=== PATIENT | female | born 1995 ===

== ENCOUNTER → 2017-04-08 | Outpatient (CLI) | payer OTHER ==
[2017-04-08 13:46] LABS: CH 32.9; CHCM 35.2; HCT 38.2 % (34.0-46.0); HDW 2.91; HGB 13.2 gm/dL (11.4-16.0); MCH 32.5 pg (25.0-35.0); MCHC 34.6 g/dL (31.0-37.0); MCV 94.1 fL (80.0-100.0); Mean Platelet Volume 6.9; RBC 4.06 m/uL (3.80-5.40); RDW 13.2 % (11.5-15.5); WBC 7.8 k/uL (4.0-11.0)
[2017-04-08 19:51] LABS: Glucose 67 mg/dL (74-99); Non-African American GFR(MDRD) >60 (>60 ml/min/1.73 sqM)
[2017-04-08 20:26] LABS: Hepatitis B Surface Ag Index 0.06
[2017-04-09 03:24] LABS: Toxoplasma Antibody (IgG) <3.0 IU/mL (<7.2)
== END | disposition home or self-care (01) ==
LOC: LABWHC1 13:08
PROVIDERS: ATTEND Obstetrics & Gynecology
DX: Z34.82 Encounter for supervision of other normal pregnancy, second trimester (principal); Z3A.00 Weeks of gestation of pregnancy not specified
CPT/HCPCS: 36415; 82565; 82947; 85027; 86762; 86777; 86778; 86780; 86850; 86900; 86901; 87340

== ENCOUNTER → 2017-06-08 | Outpatient (CLI) | payer OTHER ==
[2017-06-08 13:34] LABS: CH 33.1; CHCM 35.1; HCT 39.4 % (34.0-46.0); HDW 3.02; HGB 13.6 gm/dL (11.4-16.0); MCH 32.8 pg (25.0-35.0); MCHC 34.5 g/dL (31.0-37.0); MCV 95.1 fL (80.0-100.0); Mean Platelet Volume 7.6; RBC 4.15 m/uL (3.80-5.40); WBC 10.8 k/uL (4.0-11.0)
== END | disposition home or self-care (01) ==
LOC: LABWHC1 12:13
PROVIDERS: ATTEND Obstetrics & Gynecology
DX: Z34.82 Encounter for supervision of other normal pregnancy, second trimester (principal); Z3A.00 Weeks of gestation of pregnancy not specified
CPT/HCPCS: 36415; 82950; 85027

== ENCOUNTER 2017-07-23 12:25 | Outpatient (CLI) | payer OTHER ==
[2017-07-23 13:09] VITALS: BP 119/67; PULSE 86; RESP 16; TEMP 98.1
--- NOTE | 2017-07-24 09:12 | P.MSEPDOC ---
Presenting Problems - Arrival Data Date of Arrival on Unit: 07/23/17 Time of Arrival on Unit: 12:30 Mode of Transport: Ambulatory - Complaint OB-Reason for Admission/Chief Complaint: NST Medical History - Information : 2 Para: 1 Term: 1 : 0 Abortions: Spontaneous or Elective: 0 Number of Living Children: 1 - Gestational Age Expected Date of Delivery: 09/03/17 Gestational Age by ELAINA (wks/days): 34 Weeks and 1 Days Review of Systems - Review of Systems Constitutional: No problems Breast: No problems ENT: No problems Cardiovascular: No problems Respiratory: No problems Gastrointestinal: No problems Genitourinary: No problems Musculoskeletal: No problems Neurological: No problems Skin: No problems Vital Signs - Temperature Temperature: 98.1 F Temperature Source: Oral - Pulse Right Brachial Pulse Rate: 86 Pulse Assessment Method: Automatic Cuff - Respirations Respiratory Rate: 16 Oxygen Delivery Method: Room Air - Blood Pressure Right Arm Blood Pressure: 119/67 Blood Pressure Mean: 84 Blood Pressure Source: Automatic Cuff Medical Screen Scoring (Pre) - Cervical Exam Dilation: Exam Deferred - Uterine Contractions Frequency: N/A Duration: N/A Intensity: N/A - Maternal Vital Signs Maternal Temperature: N/A Maternal Blood Pressure: N/A Signs of Preeclampsia: N/A Maternal Respirations: N/A - Maternal Trauma Maternal Trauma: N/A - Assessment Baseline FHR: 145 Heart Rate - NICHD Category: Category I (Normal) = 0 NST: Reactive Position: N/A Station: N/A - Total Score Total Score (Pre): 0 - Level of Risk Level of Risk: Low (0-5) Physician Notification (Pre) - Physician Notified Physician Notified Date: 07/23/17 Physician Notified Time: 12:45 Physician/Practitioner Notifed:: Dr. Leigh Spoke With: Dr. Leigh New Order Received: Yes Disposition - Disposition OB Disposition: Discharge to home Discharge Date: 07/23/17 Discharge Time: 12:50 I agree with the RN Medical Screening Exam: Yes Risk & Benefit of care provided described in d/c instruction: Yes Diagnosis: RELATED CONDITIONS, UNSPECIFIED, THIRD TRIMESTER
== END 2017-07-23 13:10 | disposition home or self-care (01) ==
LOC: FBPOP 12:25
PROVIDERS: ATTEND Obstetrics & Gynecology
DX: O26.93 Pregnancy related conditions, unspecified, third trimester (principal); Z3A.34 34 weeks gestation of pregnancy
CPT/HCPCS: 59025; G0463; 99213

== ENCOUNTER 2017-08-03 11:10 | Outpatient (CLI) | payer OTHER ==
[2017-08-03 12:54] VITALS: BP 116/64; PULSE 96; RESP 16; TEMP 97.9
--- NOTE | 2017-09-23 08:12 | P.MSEPDOC ---
Presenting Problems - Arrival Data Date of Arrival on Unit: 08/03/17 Time of Arrival on Unit: 11:20 Mode of Transport: Wheelchair - Complaint OB-Reason for Admission/Chief Complaint: Vaginal Bleeding Comment: Pt states she has spotting on underwear Medical History - Information : 2 Para: 1 Term: 1 : 0 Abortions: Spontaneous or Elective: 0 Number of Living Children: 1 - Gestational Age Gestational Age by ELAINA (wks/days): 35 Weeks and 4 Days - History Complications: Prior Review of Systems - Review of Systems Constitutional: No problems Breast: No problems ENT: No problems Cardiovascular: No problems Respiratory: No problems Gastrointestinal: No problems Genitourinary: Increased frequency Musculoskeletal: No problems Neurological: No problems Skin: No problems Comment: Pt states she has had itching in vagina Vital Signs - Temperature Temperature: 97.9 F Temperature Source: Tympanic - Pulse Pulse Oximetery Pulse Rate: 96 Pulse Assessment Method: Pulse Oximetry - Respirations Respiratory Rate: 16 Oxygen Delivery Method: Room Air O2 Sat by Pulse Oximetry: 100 - Blood Pressure Right Arm Blood Pressure: 116/64 Blood Pressure Mean: 81 Blood Pressure Source: Automatic Cuff Medical Screen Scoring (Pre) - Cervical Exam Dilation: Exam Deferred Membranes: Intact - Uterine Contractions Frequency: N/A Duration: N/A Intensity: N/A - Maternal Vital Signs Maternal Temperature: N/A Maternal Blood Pressure: N/A Signs of Preeclampsia: N/A Maternal Respirations: N/A - Maternal Trauma Maternal Trauma: N/A - Assessment Baseline FHR: 125 Heart Rate - NICHD Category: Category I (Normal) = 0 NST: Reactive Position: N/A Station: N/A - Total Score Total Score (Pre): 0 - Level of Risk Level of Risk: Low (0-5) Physician Notification (Pre) - Physician Notified Physician Notified Date: 08/03/17 Physician Notified Time: 12:08 Physician/Practitioner Notifed:: James Spoke With: James New Order Received: Yes - Notification Comment Comment: Notified of pts arrival and c/o spotting today. Also notified of no LOF, no ctx felt, and +FM. Orders to perform sterile speculum to assess for increased bleeding and perform cervical exam. Medical Screen Scoring (Post) - Cervical Exam Dilation: 0 cm = 0 Membranes: Intact - Uterine Contractions Frequency: N/A Duration: N/A Intensity: N/A - Maternal Vital Signs Maternal Temperature: N/A Maternal Blood Pressure: N/A Signs of Preeclampsia: N/A Maternal Respirations: N/A - Maternal Trauma Maternal Trauma: N/A - Assessment Heart Rate: 125 Heart Rate - NICHD Category: Category I (Normal) = 0 NST: Reactive Position: N/A Station: N/A - Total Score Total Score (Post): 0 - Post Treatment Level of Risk Post Treatment Level of Risk: Low (0-5) Physician Notification (Post) - Physician Notified Physician Notified Date: 08/03/17 Physician Notified Time: 12:25 Physician/Practitioner Notified:: James Spoke With: James New Order Received: Yes - Notification Comment Comment: Orders for pt to get monostat 7. Orders for discharge of pt at this time. Disposition - Disposition OB Disposition: Discharge to home Discharge Date: 08/03/17 Discharge Time: 12:35 I agree with the RN Medical Screening Exam: Yes Risk & Benefit of care provided described in d/c instruction: Yes Diagnosis: ACUTE VAGINITIS
== END 2017-08-03 12:35 | disposition home or self-care (01) ==
LOC: FBPOP 11:10
PROVIDERS: ATTEND Obstetrics & Gynecology
DX: O23.593 Infection of other part of genital tract in pregnancy, third trimester (principal); Z3A.35 35 weeks gestation of pregnancy
CPT/HCPCS: 59025; G0463; 99213

== ENCOUNTER 2017-08-21 12:24 | Observation (INO) | payer OTHER ==
[2017-08-21 12:47] VITALS: BMI 24.8
--- NOTE | 2017-08-21 13:12 | P.HPOB ---
History of Present Illness H&P Date: 08/21/17 Chief Complaint: Uterine at 38 weeks with symptoms of pneumonia Patient is a 22-year-old at 30 weeks 2 days' gestation who is 5 days from having a repeat section. She was started on anti-medics last week due to Crestor infection but has not improved in the last 7 days left lower lobe sounds have rhonchi in them and there is significant left inventory an extra wheeze and I am therefore admitting her for observation to adjust antibiotics as well as breathing treatments and consult pulmonology so that we can hopefully have her in a better condition for when she is scheduled for her section. Her Precis course has not really been significant for anything other than the rest or infection that she is developed the last 7-10 days. Her vital signs are stable and she is afebrile. Her heart is regular right lung sounds were clear left as above. Abdomen is gravid heart tones are in the 130s to 140s and have been reactive. He is without pain. Assessment intrauterine at 38 weeks gestation with left lower lobe pneumonia versus asthmatic bronchitis. Pulmonary is going to evaluate her in the near future and will await their recommendations Past Medical History Past Medical History: No Reported History History of Any Multi-Drug Resistant Organisms: None Reported Past Surgical History: Section Additional Past Surgical History / Comment(s): 2013 Past Anesthesia/Blood Transfusion Reactions: No Reported Reaction Past Psychological History: No Psychological Hx Reported Smoking Status: Current every day smoker Past Alcohol Use History: None Reported Past Drug Use History: None Reported - Past Family History Mother Family Medical History: No Reported History Medications and Allergies Home Medications Medication Instructions Recorded Confirmed Type Amoxicillin [Amoxicillin] 250 mg PO TID 08/21/17 08/21/17 History Allergies Allergy/AdvReac Type Severity Reaction Status Date / Time Penicillins Allergy Rash/Hives Verified 08/21/17 12:41 Exam Osteopathic Statement: *. No significant issues noted on an osteopathic structural exam other than those noted in the History and Physical/Consult. - Vital Signs Vital signs: Vital Signs Temp Pulse Resp BP Pulse Ox 08/21/17 12:41 97 F L 70 16 114/74 100 Intake and Output 08/20/17 08/21/17 08/21/17 22:59 06:59 14:59 Other: Weight 61.689 kg Patient Weight 08/22/17 06:59 Weight 61.689 kg - OBG Physical Exam Abdomen: bowel sounds normal, no diffuse tenderness, no bruit present, no guarding noted, no hepatomegaly, no splenomegaly, no mass
--- NOTE | 2017-08-21 13:19 | XR ---
EXAMINATION TYPE: XR chest 2V DATE OF EXAM: 08/21/2017 COMPARISON: NONE HISTORY: Shortness of breath TECHNIQUE: Frontal and lateral views of the chest are obtained. FINDINGS: There is no focal air space opacity, pleural effusion, or pneumothorax seen. The cardiac silhouette size is within normal limits. The osseous structures are intact. IMPRESSION: No acute cardiopulmonary process.
[2017-08-21] MEDS ORDERED: ALBUTEROL NEBULIZED 2.5 MG/3 ML INHALATION PRN (14:01)
--- NOTE | 2017-08-21 14:01 | P.CNPUL ---
History of Present Illness Consult date: 08/21/17 Reason for consult: cough Chief complaint: Productive cough History of present illness: This is a 22-year-old white female, at 38 weeks and 4 days gestation, who we are asked to see in consult for persistent productive cough lasting about a week. She denies having fevers, chills, wheezing or significant shortness of breath. She had been treated with oral amoxicillin for 7 days with no significant improvement in her coughing or chest congestion. She is scheduled for a in 5 days, optimization of her respiratory condition is desirable prior to it. She denies history of asthma or any other chronic pulmonary conditions, but she is a current every day smoker. No significant past medical history other than obstetric history. Chest x-ray from 08/21/2017 was reviewed and showed no evidence of pneumonia, no consolidation, or any other acute cardiopulmonary process. On examination patient is awake alert, in no distress. Coarse lung sounds over left posterior lung base. But no wheezes, no rails. She is on room air with oxygen saturation at 100%. Afebrile, denies chest congestion. States she still has a productive cough with clear sputum. Review of Systems Constitutional: Denies chills, Denies fever Eyes: denies blurred vision, denies pain Ears, nose, mouth and throat: Denies headache, Denies sore throat Cardiovascular: Denies chest pain, Denies shortness of breath Respiratory: Reports cough with sputum (I will think), Reports wheezing Gastrointestinal: Denies abdominal pain, Denies diarrhea, Denies nausea, Denies vomiting Genitourinary: Denies dysuria, Denies hematuria Musculoskeletal: Denies myalgias Integumentary: Denies pruritus, Denies rash Neurological: Denies numbness, Denies weakness Psychiatric: Denies anxiety, Denies depression Endocrine: Denies fatigue, Denies weight change Past Medical History Past Medical History: No Reported History History of Any Multi-Drug Resistant Organisms: None Reported Past Surgical History: Section Additional Past Surgical History / Comment(s): 2013 Past Anesthesia/Blood Transfusion Reactions: No Reported Reaction Past Psychological History: No Psychological Hx Reported Smoking Status: Current every day smoker Past Alcohol Use History: None Reported Past Drug Use History: None Reported - Past Family History Mother Family Medical History: No Reported History Medications and Allergies Home Medications Medication Instructions Recorded Confirmed Type Amoxicillin [Amoxicillin] 250 mg PO TID 08/21/17 08/21/17 History Allergies Allergy/AdvReac Type Severity Reaction Status Date / Time Penicillins Allergy Rash/Hives Verified 08/21/17 12:41 Physical Exam Vitals: Vital Signs Temp Pulse Resp BP Pulse Ox 08/21/17 12:41 97 F L 70 16 114/74 100 Intake and Output 08/20/17 08/21/17 08/21/17 22:59 06:59 14:59 Other: Weight 61.689 kg Patient Weight 08/22/17 06:59 Weight 61.689 kg GENERAL EXAM: Alert, active, female in no apparent distress. HEAD: Normocephalic. EYES: Normal reaction of pupils, equal size. NOSE: Clear with pink turbinates. THROAT: No erythema or exudates. NECK: No masses, no JVD. CHEST: No chest wall deformity. LUNGS: Equal air entry with no crackles, wheeze, rhonchi or dullness. CVS: S1 and S2 normal with no audible mumurs, regular rhythm. ABDOMEN: No hepatosplenomegaly, normal bowel sounds, no guarding or rigidity. SPINE: No scoliosis or deformity SKIN: No rashes CENTRAL NERVOUS SYSTEM: No focal deficits, tone is normal in all 4 extremities. Results - Diagnostic Findings Chest x-ray: report reviewed Assessment and Plan Plan: Assessment: #1. Acute tracheobronchitis, outpatient treatment failure #2. Ongoing chronic nicotine dependence #3. Uterine at 38 weeks and 4 days gestation #4. History of section Plan: We will initiate IV azithromycin and IV ceftriaxone for antibiotic coverage for tracheobronchitis. No evidence of pneumonia. Will obtain sputum cultures. CBC with differential. Chest x-ray was reviewed. Upon discharge patient can be switched to 10 day course of Ceftin 500 mg by mouth twice a day and 5 day course of Zithromax. Albuterol nebulized treatments 2.5 mg 4 times a day and as needed. We'll continue to follow. I performed a history & physical examination of the patient and discussed their management with my nurse practitioner, Amanda Kumar. I reviewed the nurse practitioner's note and agree with the documented findings and plan of care.
[2017-08-21] MEDS: AZITHROMYCIN 500 MG in SODIUM CHLORIDE 0.9% 250 ML IVPB SCH (14:14)
[2017-08-21 14:38] LABS: Basophils % (A) 0 %; CH 32.4; CHCM 34.2; Eosinophils # (A) 0.2 k/uL (0-0.7); Eosinophils % (A) 2 %; HCT 38.7 % (34.0-46.0); HDW 3.28; Luc # (Auto) 0.24; Luc % (Auto) 3; Lymphocytes # (A) 2.3 k/uL (1.0-4.8); Lymphocytes % (A) 24 %; MCH 32.2 pg (25.0-35.0); MCHC 33.7 g/dL (31.0-37.0); MCV 95.3 fL (80.0-100.0); Mean Platelet Volume 7.6; Monocytes # (A) 0.5 k/uL (0-1.0); Monocytes % (A) 5 %; Neutrophils # (A) 6.6 k/uL (1.3-7.7); Neutrophils % (A) 67 %; RBC 4.06 m/uL (3.80-5.40); RDW 13.9 % (11.5-15.5); WBC 9.8 k/uL (3.8-10.6)
[2017-08-21] MEDS: ALBUTEROL NEBULIZED 2.5 MG/3 ML INHALATION SCH ×2 (16:27→19:22)
[2017-08-22] MEDS: AZITHROMYCIN 500 MG in SODIUM CHLORIDE 0.9% 250 ML IVPB SCH (06:32)
[2017-08-22] MEDS: ALBUTEROL NEBULIZED 2.5 MG/3 ML INHALATION SCH (08:42)
[2017-08-22 08:47] VITALS: BP 124/78; RESP 18; TEMP 97.6
[2017-08-22 08:52] VITALS: PULSE 79
--- NOTE | 2017-08-22 10:08 | P.DS ---
Providers Date of admission: 08/21/17 12:24 Expected date of discharge: 08/22/17 Attending physician: Derrick Leigh Consults: 08/21/17 12:50 Consult Physician Routine Consulting Provider: Lulu Aquino Consult Reason/Comments: Shortness of breath, cough Do you want consulting provider notified?: Yes Hospital Course: Patient is seen and evaluated. Overall she is doing well. Her vital signs continued be stable and she is afebrile. She is tolerated antibiotics well heart tones are noted this morning. She will follow up with me on Thursday for nonstress test. And she has a scheduled for Thursday. Prescriptions for Ceftin, erythromycin, and an albuterol MDI have been provided and instructions given on usage. On physical exam her heart is regular, abdomen is soft gravid uterus is noted, extremities are without pain. Right lung continues to be clear left long still some what I would describe this rhonchi and expiratory wheeze but does sound better than yesterday. We'll plan discharged home today and again she'll follow up with me on Thursday. Discharge instructions were also thoroughly reviewed and all questions are answered for her at this time. She is stable for discharge this time. Patient Condition at Discharge: Good Plan - Discharge Summary New Discharge Prescriptions: New Cefuroxime Axetil [Ceftin] 500 mg PO BID #10 tab No Action Amoxicillin [Amoxicillin] 250 mg PO TID Discharge Medication List Amoxicillin [Amoxicillin] 250 mg PO TID 08/21/17 [History] Cefuroxime Axetil [Ceftin] 500 mg PO BID #10 tab 08/22/17 [Rx] Follow up Appointment(s)/Referral(s): Derrick Leigh DO [Doctor of Osteopathic Medicine] - 08/24/17 Activity/Diet/Wound Care/Special Instructions: Return with any decrease in movement, contractions, or other problems especially with any change in her breathing. Discharge Disposition: HOME SELF-CARE
== END 2017-08-22 10:20 | disposition home or self-care (01) ==
LOC: 4FBP 12:24
PROVIDERS: ADMIT Obstetrics & Gynecology; ATTEND Obstetrics & Gynecology
DX: O99.513 Diseases of the respiratory system complicating pregnancy, third trimester (principal); J20.9 Acute bronchitis, unspecified; O99.333 Smoking (tobacco) complicating pregnancy, third trimester; F17.200 Nicotine dependence, unspecified, uncomplicated; Z3A.38 38 weeks gestation of pregnancy; Z88.0 Allergy status to penicillin
CPT/HCPCS: 71020; 85025; 87205; 94640

== ENCOUNTER 2017-08-26 06:44 | Inpatient (IN) | payer OTHER ==
[2017-08-26] MEDS ORDERED: CITRIC ACID-SODIUM CITRATE 15 ML CUP PO ONE (06:59)
[2017-08-26] MEDS ORDERED: LACTATED RINGERS 1,000 ML IV ONE (06:59)
[2017-08-26] MEDS ORDERED: LACTATED RINGERS 1,000 ML IV SCH ×2 (07:00→09:00)
[2017-08-26] MEDS ORDERED: CLINDAMYCIN 900 MG in DEXTROSE 5% IN WATER 50 ML IVPB STA ×2 (07:01)
[2017-08-26 07:13] LABS: Basophils # (A) 0.1 k/uL (0-0.2); Basophils % (A) 1 %; CH 32.3; CHCM 34.8; Eosinophils # (A) 0.3 k/uL (0-0.7); Eosinophils % (A) 3 %; HCT 38.7 % (34.0-46.0); HDW 3.31; HGB 13.1 gm/dL (11.4-16.0); Luc # (Auto) 0.28; Luc % (Auto) 3; Lymphocytes # (A) 2.8 k/uL (1.0-4.8); Lymphocytes % (A) 27 %; MCH 31.7 pg (25.0-35.0); MCHC 33.9 g/dL (31.0-37.0); MCV 93.5 fL (80.0-100.0); Mean Platelet Volume 7.6; Monocytes # (A) 0.6 k/uL (0-1.0); Monocytes % (A) 6 %; Neutrophils # (A) 6.2 k/uL (1.3-7.7); Neutrophils % (A) 61 %; RBC 4.15 m/uL (3.80-5.40); RDW 13.9 % (11.5-15.5); WBC 10.1 k/uL (3.8-10.6); WBC (Perox) 10.52
[2017-08-26 07:14] VITALS: BMI 24.8
[2017-08-26] MEDS ORDERED: NALBUPHINE 10 MG/ML AMPUL ONE (08:24)
[2017-08-26] MEDS ORDERED: ONDANSETRON 4 MG/2 ML VIAL ONE (08:24)
[2017-08-26] MEDS ORDERED: MORPHINE SULFATE (PF) 0.3 MG/0.3 ML SYR ONE (08:24)
[2017-08-26] MEDS ORDERED: KETOROLAC 30 MG/ML 1 ML VIAL ONE (08:24)
[2017-08-26] MEDS ORDERED: ePHEDrine SULFATE/0.9% NACL/PF 50 MG/5 ML SYRINGE IV ONE (08:24)
[2017-08-26] MEDS ORDERED: OXYTOCIN 10 UNIT/ML 1 ML VIAL ONE (08:24)
[2017-08-26] MEDS ORDERED: diphenhydrAMINE 50 MG CAP PO PRN (08:59)
[2017-08-26] MEDS ORDERED: NALOXONE 0.4 MG/ML 1 ML VIAL IV PRN ×2 (08:59→14:07)
[2017-08-26] MEDS ORDERED: diphenhydrAMINE 50 MG/ML 1 ML VIAL IVP PRN ×2 (08:59)
[2017-08-26] MEDS ORDERED: KETOROLAC 30 MG/ML 1 ML VIAL IVP PRN (08:59)
[2017-08-26] MEDS ORDERED: METOCLOPRAMIDE 5 MG/ML 2 ML VIAL IVP PRN (08:59)
[2017-08-26] MEDS ORDERED: ACETAMINOPHEN TAB 325 MG TAB PO PRN (08:59)
[2017-08-26] MEDS ORDERED: diphenhydrAMINE 25 MG CAP PO PRN (08:59)
[2017-08-26] MEDS ORDERED: Acetaminophen-Codeine 300-30mg TAB PO PRN (08:59)
[2017-08-26] MEDS ORDERED: ZOLPIDEM 5 MG TAB PO PRN (08:59)
[2017-08-26] MEDS ORDERED: SIMETHICONE 80 MG CHEWABLE PO PRN (08:59)
[2017-08-26] MEDS ORDERED: ONDANSETRON 4 MG/2 ML VIAL IVP PRN (08:59)
--- NOTE | 2017-08-26 09:02 | P.HPOB ---
History of Present Illness H&P Date: 08/26/17 Chief Complaint: Intrauterine at term: Previous section Patient is a 22-year-old at 39 weeks with previous section. Her course until last week had been unremarkable. However last week she was diagnosed with acute asthmatic bronchitis and has been on antibiotics and inhalers for last several days. She is feeling much improved and lungs are much clear now than they were a few days ago. Her vital signs are stable and afebrile. Heart regular, lungs clear again abdomen gravid uterus noted. heart tones in the 130s and reactive. Extremities are without pain. Pertinent labs O+ blood type Rh antibody was negative, rubella immune, hepatitis B surface antigen/RPR/GBS, all negative. Assessment intrauterine at term plan repeat low transverse section. Past Medical History Past Medical History: No Reported History History of Any Multi-Drug Resistant Organisms: None Reported Past Surgical History: Section Additional Past Surgical History / Comment(s): 2013 Past Anesthesia/Blood Transfusion Reactions: No Reported Reaction Past Psychological History: No Psychological Hx Reported Smoking Status: Current every day smoker Past Alcohol Use History: None Reported Past Drug Use History: None Reported - Past Family History Mother Family Medical History: No Reported History Medications and Allergies Home Medications Medication Instructions Recorded Confirmed Type Cefuroxime Axetil [Ceftin] 500 mg PO BID #10 tab 08/22/17 Rx Azithromycin [Zithromax] 250 mg PO DAILY 08/26/17 08/26/17 History Allergies Allergy/AdvReac Type Severity Reaction Status Date / Time Penicillins Allergy Rash/Hives Verified 08/26/17 06:56 Exam Osteopathic Statement: *. No significant issues noted on an osteopathic structural exam other than those noted in the History and Physical/Consult. - Vital Signs Vital signs: Vital Signs Temp Pulse Resp BP 08/26/17 06:56 97.5 F L 90 16 116/72 Intake and Output 08/25/17 08/26/17 08/26/17 22:59 06:59 14:59 Other: Weight 61.689 kg Results Result Diagrams: 08/26/17 07:00
[2017-08-26] MEDS ORDERED: DIPH,PERTUS(ACELL)TETVAC-LF 0.5 ML VIAL IM ONE (09:05)
--- NOTE | 2017-08-26 09:05 | P.OP ---
Date of Procedure: 08/26/17 Preoperative Diagnosis: Intrauterine at 39 weeks with prior section Postoperative Diagnosis: Same Procedure(s) Performed: Repeat low transverse section Anesthesia: spinal Surgeon: Derrick Leigh [employer] Installer #1: Jeovanny Hernandez Estimated Blood Loss (ml): 400 IV fluids (ml): 1,000 Urine output (ml): 500 Pathology: other (Placenta) Condition: stable Disposition: floor Operative Findings: Female 's of 8 and 9 at one and 5 minutes with a weight of 6 lbs. 5 oz. Description of Procedure: Patient was taken to the operating suite where a spinal anesthetic was found to be adequate. She was prepped and draped in the normal sterile fashion and placed in the dorsal supine position with leftward tilt. Initially a Pfannenstiel skin incision was made and this incision was then carried through to underlying layer of the fashion with second knife. Fascia was then nicked in the midline and this opening was extended laterally with Floyd scissors. Superior and inferior aspect of this incision were then grasped tented up and bluntly and sharply dissected off the rectus muscles. Rectus muscles were then divided in the midline and sharp dissection through the peritoneum was made. This opening was then extended superiorly and inferiorly with Metzenbaum scissors with good visualization of both bowel and bladder. Bladder blade was then placed and the bladder flap identified entered with Metzenbaum scissors and the opening extended across the face of the uterus with Metzenbaum scissors. Bladder was then bluntly dissected out of the operative field. Knife was then used to incise the uterus incision was fully developed with hemostat and then extended bluntly. Head was then atraumatically delivered mouth nares bulb suctioned. Nuchal cord 2 was easily reduced and then anterior posterior shoulders were delivered gentle downward upper traction. Once baby was fully delivered umbilical cord was clamped and cut in usual fashion an nursery personnel was present to assume care. Placenta was then delivered intact and Pitocin was added to the IV. Uterus was then closed in 2 layers with 0 Vicryl suture. Blood and debris was then suctioned from the posterior cul-de-sac and the uterus was reinserted into the abdomen. Peritoneal layer was then reapproximated with 0 Vicryl suture. Fascial layer closed with 0 Vicryl suture. She had basically no subcuticular tissues therefore skin was closed with 3-0 Vicryl on a Victorino needle. Sponge, lap, needle counts were all correct 2. Patient was then taken to the recovery room in stable and satisfactory condition.
[2017-08-26] MEDS: AZITHROMYCIN 250 MG TAB PO SCH (12:43)
[2017-08-26] MEDS: CEFUROXIME 250 MG TAB PO SCH ×2 (12:44→22:32)
[2017-08-26] MEDS ORDERED: MORPHINE SULFATE 4 MG/ML SYRINGE IVP PRN (14:07)
[2017-08-26] MEDS: SENNOSIDES-DOCUSATE SODIUM 1 EACH TAB PO SCH (20:34)
[2017-08-26] MEDS: NICOTINE 14MG/24HR PATCH TRANSDERM SCH (20:34)
[2017-08-27] MEDS: Acetaminophen-Codeine 300-30mg TAB PO PRN ×2 (05:57→19:46)
[2017-08-27 07:34] LABS: Basophils # (A) 0.1 k/uL (0-0.2); Basophils % (A) 0 %; CH 32.1; CHCM 34.1; Eosinophils # (A) 0.1 k/uL (0-0.7); Eosinophils % (A) 1 %; HCT 34.9 % (34.0-46.0); HDW 3.25; Luc # (Auto) 0.21; Luc % (Auto) 2; Lymphocytes # (A) 1.7 k/uL (1.0-4.8); Lymphocytes % (A) 14 %; MCH 32.6 pg (25.0-35.0); MCHC 34.4 g/dL (31.0-37.0); MCV 94.7 fL (80.0-100.0); Mean Platelet Volume 8.2; Monocytes # (A) 0.7 k/uL (0-1.0); Monocytes % (A) 6 %; Neutrophils # (A) 8.9 k/uL (1.3-7.7); Neutrophils % (A) 77 %; RBC 3.69 m/uL (3.80-5.40); WBC 11.6 k/uL (3.8-10.6); WBC (Perox) 12.43
[2017-08-27] MEDS: SENNOSIDES-DOCUSATE SODIUM 1 EACH TAB PO SCH ×2 (11:18→19:46)
[2017-08-27] MEDS: AZITHROMYCIN 250 MG TAB PO SCH (11:18)
[2017-08-27] MEDS: CEFUROXIME 250 MG TAB PO SCH ×2 (11:19→22:34)
[2017-08-27] MEDS: IBUPROFEN 600 MG TAB PO PRN ×2 (11:20→22:34)
--- NOTE | 2017-08-27 12:27 | P.PNOBGPC ---
Subjective - Subjective Principal diagnosis: post op day 1 Interval history: doing very well. no c/o or problems. all questions answered Patient reports: Reports appetite normal, Reports voiding normally, Reports pain well controlled, Reports ambulating normally [place]: doing well Objective - Vital Signs Latest vital signs: Vital Signs Temp Pulse Resp BP Pulse Ox 08/27/17 08:00 98.1 F 83 18 101/56 95 08/27/17 04:00 97.5 F L 100 16 133/62 100 08/27/17 00:00 97.4 F L 79 16 105/59 99 08/26/17 20:00 98.4 F 79 18 107/66 99 08/26/17 18:52 18 99 08/26/17 17:07 16 08/26/17 16:00 98.4 F 72 16 115/70 100 08/26/17 15:07 16 100 Intake and Output 08/26/17 08/27/17 08/27/17 22:59 06:59 14:59 Output Total 6550 Balance -6550 Output: Urine 6550 Uretheral (George) 1900 Other: # Voids 2 1 - Exam Lungs: bilateral: normal Chest: Normal S1, Normal S2 Extremities: Present: normal Abdomen: Present: normal appearance, soft. Absent: distention, tenderness Incision: Present: normal, dry, intact Uterus: Present: normal, firm - Labs Labs: Abnormal Lab Results - Last 24 Hours (Table) 08/27/17 Range/Units 07:22 WBC 11.6 H (3.8-10.6) k/uL RBC 3.69 L (3.80-5.40) m/uL Neutrophils # 8.9 H (1.3-7.7) k/uL
[2017-08-27] MEDS: guaiFENesin SYRUP 100MG/5ML 200 MG/10 ML CUP PO PRN (17:42)
--- NOTE | 2017-08-27 20:24 | P.PN ---
Progress Note - Text Date:[08/27] Time:[2032] Patient is status post []. Patient seen this morning with VAS score of [2].no c/o of pruritus, no c/o nausea/vomiting, comfortable and doing well.
[2017-08-27] MEDS: NICOTINE 14MG/24HR PATCH TRANSDERM SCH (22:35)
[2017-08-28] MEDS ORDERED: DIPH,PERTUS(ACELL)TETVAC-LF 0.5 ML VIAL IM ONE (00:22)
[2017-08-28] MEDS: guaiFENesin SYRUP 100MG/5ML 200 MG/10 ML CUP PO PRN (00:40)
[2017-08-28] MEDS: CEFUROXIME 250 MG TAB PO SCH (07:58)
[2017-08-28] MEDS: SENNOSIDES-DOCUSATE SODIUM 1 EACH TAB PO SCH (07:58)
[2017-08-28] MEDS: AZITHROMYCIN 250 MG TAB PO SCH (08:00)
[2017-08-28 08:46] VITALS: BP 119/63; PULSE 86; RESP 18; TEMP 98.8
--- NOTE | 2017-08-28 08:48 | P.DS ---
Providers Date of admission: 08/26/17 06:44 Expected date of discharge: 08/28/17 Attending physician: Derrick Leigh Primary care physician: Stated None Hospital Course: Patient is doing very well postop day 2 for a section. She's ablating , voiding and she is tolerating her diet. She voices no complaints. Vital signs are stable and afebrile. She is requesting discharge home today. Heart regular, lungs clear, extremities without pain. Her abdomen is soft uterus is firm and lochia is reported to be light. Her incision is otherwise clean dry and intact. Assessment postop day 2. Plan discharged home follow me in 1 week. Prescription for Tylenol 3 and Motrin have been provided and all questions are answered for her prior to her discharge. Patient Condition at Discharge: Good Plan - Discharge Summary New Discharge Prescriptions: New Acetaminophen-Codeine 300-30mg [Tylenol #3] 1 tab PO Q4H PRN #30 tablet PRN Reason: Pain Ibuprofen [Motrin] 600 mg PO Q6HR PRN #30 tab PRN Reason: Pain No Action Cefuroxime Axetil [Ceftin] 500 mg PO BID #10 tab Azithromycin [Zithromax] 250 mg PO DAILY Discharge Medication List Cefuroxime Axetil [Ceftin] 500 mg PO BID #10 tab 08/22/17 [Rx] Azithromycin [Zithromax] 250 mg PO DAILY 08/26/17 [History] Acetaminophen-Codeine 300-30mg [Tylenol #3] 1 tab PO Q4H PRN #30 tablet [Rx] Ibuprofen [Motrin] 600 mg PO Q6HR PRN #30 tab 08/28/17 [Rx] Follow up Appointment(s)/Referral(s): Derrick Leigh DO [Doctor of Osteopathic Medicine] - 1 Week Activity/Diet/Wound Care/Special Instructions: No heavy lifting, limit stairs and driving and pelvic rest. If any high temperatures, heavy bleeding, or severe pain call my office
== END 2017-08-28 10:33 | disposition home or self-care (01) | DRG 540 ==
LOC: 4FBP 06:44
PROVIDERS: ADMIT Obstetrics & Gynecology; ATTEND Obstetrics & Gynecology
PROC: 10D00Z1 Extraction of Products of Conception, Low, Open Approach (ICD-10-PCS; principal; 2017-08-26 08:00)
DX: O34.211 Maternal care for low transverse scar from previous cesarean delivery (principal); F17.200 Nicotine dependence, unspecified, uncomplicated; Z37.0 Single live birth; O99.334 Smoking (tobacco) complicating childbirth; Z88.0 Allergy status to penicillin; O99.52 Diseases of the respiratory system complicating childbirth; J45.909 Unspecified asthma, uncomplicated; Z3A.39 39 weeks gestation of pregnancy; Z79.2 Long term (current) use of antibiotics
CPT/HCPCS: 85025; 86850; 86900; 86901; 88307; 90715

== ENCOUNTER 2023-10-06 02:09 | Emergency (ER) | payer OTHER ==
[2023-10-06 02:27] VITALS: BP 126/84; PULSE 100; RESP 18; TEMP 98.3
[2023-10-06] MEDS ORDERED: KETOROLAC 15 MG/ML 1 ML VIAL IM STA (02:42)
[2023-10-06] MEDS ORDERED: CLINDAMYCIN 150 MG CAP PO STA (02:42)
[2023-10-06] MEDS ORDERED: ACET/COD 300 MG/30 MG STARTER PACK 6 TAB BTL PO STA (02:44)
--- NOTE | 2023-10-06 02:58 | ED ---
General Adult HPI - General Chief complaint: Dental/Oral Stated complaint: Dental Pain Time Seen by Provider: 10/06/23 02:26 Source: patient, RN notes reviewed Mode of arrival: ambulatory Limitations: no limitations - History of Present Illness Initial comments: 28-year-old female with no significant past medical history presents to the emergency department with a chief complaint of dental pain. Patient reports she broke her feeling 3 days ago. The pain is progressively gotten worse. She didn't take Tylenol Motrin at home with symptomatic improvement. Patient is a tobacco product smoker. Patient reports that she does have a dentist appointment however is not 11/04/2023. Denies any fevers, chills, difficulty breathing. - Related Data Home Medications Medication Instructions Recorded Confirmed Azithromycin [Zithromax] 250 mg PO DAILY 08/26/17 08/26/17 Previous Rx's Medication Instructions Recorded cefUROXime axetiL [Ceftin] 500 mg PO BID #10 tab 08/22/17 Acetaminophen-Codeine 300-30mg 1 tab PO Q4H PRN #30 tablet 08/28/17 [Tylenol #3] Ibuprofen [Motrin] 600 mg PO Q6HR PRN #30 tab 08/28/17 Clindamycin [Cleocin] 450 mg PO Q6H #21 cap 10/06/23 Allergies Allergy/AdvReac Type Severity Reaction Status Date / Time Penicillins Allergy Rash/Hives Verified 10/06/23 02:16 Review of Systems ROS Statement: Those systems with pertinent positive or pertinent negative responses have been documented in the HPI. ROS Other: All systems not noted in ROS Statement are negative. Past Medical History Past Medical History: No Reported History History of Any Multi-Drug Resistant Organisms: None Reported Past Surgical History: Section Additional Past Surgical History / Comment(s): 2013 Past Anesthesia/Blood Transfusion Reactions: No Reported Reaction Past Psychological History: No Psychological Hx Reported Smoking Status: Current every day smoker Past Alcohol Use History: None Reported Past Drug Use History: Marijuana - Past Family History Mother Family Medical History: No Reported History General Exam - General Exam Comments Initial Comments: General: Alert, in no acute distress Head: atraumatic normocephalic. Eyes PERRL, EOMI intact, mucous membranes moist, poor dentition condition throughout, 14 with chipped dental filling. No evidence of dental abscess. Respiratory: Lungs clear to auscultation bilaterally Cardiovascular: Heart rate regular rhythm Abdominal: Soft without guarding or rebound Extremities: Normal inspection with full range of motion and normal capillary refill Neuroogic: alert and oriented 3, CN II-XII intact, able to ambulate with steady gait Skin: warm dry and intact with normal color Limitations: no limitations Course Vital Signs 10/06/23 02:15 Temperature 98.3 F Pulse Rate 100 Respiratory 18 Rate Blood Pressure 126/84 O2 Sat by Pulse 100 Oximetry Medical Decision Making - Medical Decision Making Was pt. sent in by a medical professional or institution (, MATHEW, SHAREPOINT TRAINER, urgent care, hospital, or fdc...) When possible be specific @ -[No] Did you speak to anyone other than the patient for history (EMS, parent, family, police, friend...)? What history was obtained from this source @ -[No] Did you review nursing and triage notes (agree or disagree)? Why? @ -[I reviewed and agree with nursing and triage notes] Were old charts reviewed (outside hosp., previous admission, EMS record, old EKG, old radiological studies, urgent care reports/EKG's, fdc records)? Report findings @ -[No old charts were reviewed] Differential Diagnosis (chest pain, altered mental status, abdominal pain women, abdominal pain men, vaginal bleeding, weakness, fever, dyspnea, syncope, headache, dizziness, GI bleed, back pain, seizure, CVA, palpatations, mental health, musculoskeletal)? @ -[not applicable] EKG interpreted by me (3pts min.). @ -[As above] X-rays interpreted by me (1pt min.). @ -[None done] CT interpreted by me (1pt min.). @ -[None done] U/S interpreted by me (1pt. min.). @ -[None done] What testing was considered but not performed or refused? (CT, X-rays, U/S, labs)? Why? @ -[None] What meds were considered but not given or refused? Why? @ -[None] Did you discuss the management of the patient with other professionals (professionals i.e. , MATHEW, SHAREPOINT TRAINER, lab, RT, psych nurse, foster care social worker, blade bender furnace tender, teacher, licensed mortgage loan officer, family caseworker)? Give summary @ -[No] Was smoking cessation discussed for >3mins.? @ -[No] Was critical care preformed (if so, how long)? @ -[No] Were there social determinants of health that impacted care today? How? (Homelessness, low income, unemployed, alcoholism, drug addiction, transportation, low edu. Level, literacy, decrease access to med. care, assisted, rehab)? @ -[No] Was there de-escalation of care discussed even if they declined (Discuss DNR or withdrawal of care, Hospice)? DNR status @ -[No] What co-morbidities impacted this encounter? (DM, HTN, Smoking, COPD, CAD, Cancer, CVA, ARF, Chemo, Hep., AIDS, mental health diagnosis, sleep apnea, morbid obesity)? @ -[None] Was patient admitted / discharged? Hospital course, mention meds given and route, prescriptions, significant lab abnormalities, going to OR and other pertinent info. @ -Discharged. This is a 28-year-old female presents to the emergency department with dental pain. Physical exam reveals poor dentition with chipped tooth AT TOOTH 14. No evidence of dental abscess. Patient given Toradol symptomatic improvement. Recommend close follow-up with dentist within 3-5 days. Pt provided prescription for clindamycin Return precautions discussed at length. Patient discharged in stable condition. Case discussed with Dr. Schwartz Rmaírez who agrees with plan of care Undiagnosed new problem with uncertain prognosis? @ -[No] Drug Therapy requiring intensive monitoring for toxicity (Heparin, Nitro, Insulin, Cardizem)? @ -[No] Were any procedures done? @ -[No] Diagnosis/symptom? @ -Dental Pain Acute, or Chronic, or Acute on Chronic? @ -Acute Uncomplicated (without systemic symptoms) or Complicated (systemic symptoms)? @ -Uncomplicated Side effects of treatment? @ -[No] Exacerbation, Progression, or Severe Exacerbation? @ -[No] Poses a threat to life or bodily function? How? (Chest pain, [place], [place], pneumonia, PE, COPD, DKA, ARF, appy, cholecystitis, CVA, Diverticulitis, Homicidal, Suicidal, threat to staff... and all critical care pts) @ -Low likelihood Disposition Clinical Impression: Dental caries Disposition: HOME SELF-CARE Condition: Stable Instructions (If sedation given, give patient instructions): Dental Abscess (ED), Toothache (ED) Additional Instructions: Please monitor symptoms closely Please return to the nearest emergency department if worsening symptoms Prescriptions: Clindamycin [Cleocin] 450 mg PO Q6H #21 cap Is patient prescribed a controlled substance at d/c from ED?: No Referrals: Tono Cage MD [Primary Care Provider] - 1-2 days Time of Disposition: 02:54
== END 2023-10-06 03:14 | disposition home or self-care (01) ==
LOC: EC 02:09
DX: K02.9 Dental caries, unspecified (principal); F17.200 Nicotine dependence, unspecified, uncomplicated; F12.90 Cannabis use, unspecified, uncomplicated; Z88.0 Allergy status to penicillin; Z79.899 Other long term (current) drug therapy
CPT/HCPCS: 99282; 96372; J1885

== ENCOUNTER 2024-08-29 09:10 | Emergency (ER) | payer OTHER ==
[2024-08-29 09:59] VITALS: RESP 18
[2024-08-29] MEDS: AZITHROMYCIN 500 MG TAB PO STA (11:09)
--- NOTE | 2024-08-29 11:14 | ED ---
General Adult HPI - General Chief complaint: Upper Respiratory Infection Stated complaint: Throat pain, vomiting, 26 wks preg Time Seen by Provider: 08/29/24 09:50 Source: patient, RN notes reviewed, old records reviewed Mode of arrival: ambulatory Limitations: no limitations - History of Present Illness Initial comments: Patient is a 29-year-old female who is 26 weeks presents emergency department with sore throat, congestion, mild cough. Has been ongoing for few days. Presents for further evaluation. Denies chest pain, nausea, vomiting, diarrhea. Denies any vaginal bleeding or discharge. Has no urinary complaints. Has no acute complaints at this time. Presents because she is concerned she may have pneumonia or bronchitis. - Related Data Home Medications Medication Instructions Recorded Confirmed Azithromycin [Zithromax] 250 mg PO DAILY 08/26/17 08/26/17 Previous Rx's Medication Instructions Recorded cefUROXime axetiL [Ceftin] 500 mg PO BID #10 tab 08/22/17 Acetaminophen-Codeine 300-30mg 1 tab PO Q4H PRN #30 tablet 08/28/17 [Tylenol #3] Ibuprofen [Motrin] 600 mg PO Q6HR PRN #30 tab 08/28/17 Clindamycin [Cleocin] 450 mg PO Q6H #21 cap 10/06/23 Azithromycin [Zithromax Z Pack] 250 mg PO DAILY 4 Days #4 tab 08/29/24 Allergies Allergy/AdvReac Type Severity Reaction Status Date / Time Penicillins Allergy Rash/Hives Verified 08/29/24 09:14 Review of Systems ROS Statement: Those systems with pertinent positive or pertinent negative responses have been documented in the HPI. Review of Systems: CONST: Denies fever EYES: Denies blurry vision ENT: Endorses nasal congestion, cough C/V: Denies Chest pain RESP: Denies shortness of breath GI: Denies abdominal pain : Denies dysuria SKIN: Denies rash. MSK: Denies joint pain. NEURO: Denies headache ROS Other: All systems not noted in ROS Statement are negative. Past Medical History Past Medical History: No Reported History History of Any Multi-Drug Resistant Organisms: None Reported Past Surgical History: Section Additional Past Surgical History / Comment(s): 2013 Past Anesthesia/Blood Transfusion Reactions: No Reported Reaction Past Psychological History: No Psychological Hx Reported Smoking Status: Current every day smoker Past Alcohol Use History: None Reported Past Drug Use History: None Reported - Past Family History Mother Family Medical History: No Reported History General Exam - General Exam Comments Initial Comments: General: Appears in no acute distress. HEAD: Normal with no signs of head trauma. EYES: EOMI. ENT: Nasal congestion. Posterior oropharynx within normal limits. RESPIRATORY: No respiratory distress. No hypoxia. Clear breath sounds bilaterally. C/V: Regular rate and rhythm. ABD: Gravid uterus. EXT: No obvious deformity. SKIN: No rashes or lesions observed on exposed skin. NEURO: Alert and oriented. Limitations: no limitations Course Vital Signs 08/29/24 08/29/24 08/29/24 09:12 09:58 11:21 Temperature 98.1 F 98.3 F 98.4 F Pulse Rate 105 H 98 96 Respiratory 20 18 18 Rate Blood Pressure 127/77 129/78 O2 Sat by Pulse 99 100 100 Oximetry Medical Decision Making - Medical Decision Making Was pt. sent in by a medical professional or institution (, PA, AVIATION PROJECT ENGINEER, urgent care, hospital, or senior living...) When possible be specific @ -No Did you speak to anyone other than the patient for history (EMS, parent, family, police, friend...)? What history was obtained from this source @ -No Did you review nursing and triage notes (agree or disagree)? Why? @ -I reviewed and agree with nursing and triage notes Were old charts reviewed (outside hosp., previous admission, EMS record, old EKG, old radiological studies, urgent care reports/EKG's, senior living records)? Report findings @ -No old charts were reviewed Differential Diagnosis (chest pain, altered mental status, abdominal pain women, abdominal pain men, vaginal bleeding, weakness, fever, dyspnea, syncope, headache, dizziness, GI bleed, back pain, seizure, CVA, palpatations, mental health, musculoskeletal)? @ -Bronchitis, pneumonia, COVID, flu, RSV, strep. This list is not all inclusive. EKG interpreted by me (3pts min.). @ -None done X-rays interpreted by me (1pt min.). @ -None done CT interpreted by me (1pt min.). @ -None done U/S interpreted by me (1pt. min.). @ -None done What testing was considered but not performed or refused? (CT, X-rays, U/S, labs)? Why? @ -Consider chest x-ray however patient is currently 26 weeks we both agreed to defer at this time What meds were considered but not given or refused? Why? @ -None Did you discuss the management of the patient with other professionals (professionals i.e. , PA, AVIATION PROJECT ENGINEER, lab, RT, psych nurse, social work supervisor, bowling teacher, teacher, disabilities services officer, corrections caseworker)? Give summary @ -No Was smoking cessation discussed for >3mins.? @ -No Was critical care preformed (if so, how long)? @ -No Were there social determinants of health that impacted care today? How? (Homelessness, low income, unemployed, alcoholism, drug addiction, transportation, low edu. Level, literacy, decrease access to med. care, long term, rehab)? @ -No Was there de-escalation of care discussed even if they declined (Discuss DNR or withdrawal of care, Hospice)? DNR status @ -No What co-morbidities impacted this encounter? (DM, HTN, Smoking, COPD, CAD, Cancer, CVA, ARF, Chemo, Hep., AIDS, mental health diagnosis, sleep apnea, morbid obesity)? @ -Current . Was patient admitted / discharged? Hospital course, mention meds given and route, prescriptions, significant lab abnormalities, going to OR and other pertinent info. @ -Patient presents emergency department for URI symptoms. Is 26 weeks and is having no complaints regarding , vaginal bleeding, complications from . Only complaint is URI symptoms. Vitals within acceptable limits. Discussed obtaining chest x-ray however patient currently is 26 weeks we both agreed to defer at this time. We will obtain viral swabs and strep swab. Patient in agreement this plan. Vital signs within acceptable limits. Swabs are all negative. Discussed results with patient. Diagnosis is tracheobronchitis. She will be placed on azithromycin. She was in agreement this plan. I will provide the patient with a prescription for azithromycin. I instructed the patient to follow up with their PCP in the next 1-3 days.. I explained that the patient should return to the emergency department if they experience any worsening symptoms. Strict return precautions were discussed with the patient. The patient expressed understanding of these instructions. I answered all questions that the patient had. The patient was discharged home in good condition with their prescriptions and follow up information. Undiagnosed new problem with uncertain prognosis? @ -No Drug Therapy requiring intensive monitoring for toxicity (Heparin, Nitro, Insulin, Cardizem)? @ -No Were any procedures done? @ -No Diagnosis/symptom? @ -Tracheobronchitis Acute, or Chronic, or Acute on Chronic? @ -Acute Uncomplicated (without systemic symptoms) or Complicated (systemic symptoms)? @ -Uncomplicated Side effects of treatment? @ -No Exacerbation, Progression, or Severe Exacerbation? @ -No Poses a threat to life or bodily function? How? (Chest pain, [place], [place], pneumonia, PE, COPD, DKA, ARF, appy, cholecystitis, CVA, Diverticulitis, Homicidal, [place] icidal, threat to staff... and all critical care pts) @ -Unlikely - Lab Data Lab Results 08/29/24 08/29/24 Range/Units 09:54 09:54 Influenza Type A (PCR) Not Detected (Not Detectd) Influenza Type B (PCR) Not Detected (Not Detectd) RSV (PCR) Not Detected (Not Detectd) SARS-CoV-2 (PCR) Not Detected (Not Detectd) Group A Strep (PCR) NOT DETECTED (Not Detectd) Disposition Clinical Impression: Tracheobronchitis, Disposition: HOME SELF-CARE Condition: Good Instructions (If sedation given, give patient instructions): Acute Bronchitis (ED) Prescriptions: Azithromycin [Zithromax Z Pack] 250 mg PO DAILY 4 Days #4 tab Is patient prescribed a controlled substance at d/c from ED?: No Referrals: Tono Cage MD [Primary Care Provider] - 1-2 days Time of Disposition: 11:14
[2024-08-29 11:22] VITALS: BP 129/78; PULSE 96; TEMP 98.4
== END 2024-08-29 11:21 | disposition home or self-care (01) ==
LOC: EC 09:10
CPT/HCPCS: 87636; 87651; 99283

== ENCOUNTER 2024-11-30 10:05 | Inpatient (IN) | payer OTHER ==
[2024-11-28 12:57] VITALS: BMI 24.7
[2024-11-30] MEDS ORDERED: CARBOPROST TROMETHAMINE 250 MCG/ML 1 ML AMP IM PRN (10:26)
[2024-11-30] MEDS ORDERED: TRANEXAMIC 1,000 MG/100ML-NACL 1,000 MG in EMPTY BAG 1 BAG IV PRN (10:26)
[2024-11-30] MEDS ORDERED: OXYTOCIN 10 UNIT/ML 1 ML VIAL IM PRN (10:26)
[2024-11-30] MEDS ORDERED: METHYLERGONOVINE 0.2 MG/ML 1 ML AMP IM PRN (10:26)
[2024-11-30] MEDS ORDERED: miSOPROStoL 200 MCG TAB PO PRN (10:26)
[2024-11-30] MEDS: LACTATED RINGERS 1,000 ML IV ONE (11:09)
[2024-11-30 11:24] LABS: Basophils # (A) 0.1 k/uL (0-0.2); Basophils % (A) 1 %; Eosinophils # (A) 0.1 k/uL (0-0.7); Eosinophils % (A) 1 %; HCT 39.6 % (34.0-46.0); HGB 13.6 gm/dL (11.4-16.0); Lymphocytes # (A) 2.3 k/uL (1.0-4.8); Lymphocytes % (A) 22 %; MCH 31.9 pg (25.0-35.0); MCHC 34.3 g/dL (31.0-37.0); MCV 92.9 fL (80.0-100.0); Monocytes # (A) 0.5 k/uL (0-1.0); Monocytes % (A) 5 %; Neutrophils # (A) 7.5 k/uL (1.3-7.7); Neutrophils % (A) 70 %; Platelet Count 258 k/uL (150-450); RBC 4.26 m/uL (3.80-5.40); RDW 13.4 % (11.5-15.5); WBC 10.8 k/uL (3.8-10.6)
[2024-11-30] MEDS: CITRIC ACID-SODIUM CITRATE 15 ML CUP PO ONE (11:46)
[2024-11-30] MEDS: LACTATED RINGERS 1,000 ML IV SCH ×2 (11:46→13:37)
[2024-11-30] MEDS ORDERED: MORPHINE SULFATE (PF) 0.3 MG/0.3 ML SYR ONE (12:15)
[2024-11-30] MEDS ORDERED: ePHEDrine 50 MG/ML 1 ML VIAL ONE (12:15)
[2024-11-30] MEDS ORDERED: OXYTOCIN 30 UNITS/500 ML NS BAG IV ONE (12:15)
[2024-11-30] MEDS ORDERED: KETOROLAC 15 MG/ML 1 ML VIAL ONE (12:15)
[2024-11-30] MEDS ORDERED: ONDANSETRON 4 MG/2 ML VIAL ONE (12:15)
--- NOTE | 2024-11-30 13:06 | P.HPOB ---
History of Present Illness H&P Date: 11/30/24 Chief Complaint: Scheduled repeat section Ms. Aguila is a 29 year old at 39 weeks gestation with EDC of 12/07/24 by 8 week US who presents for scheduled repeat section. Her has been essentially uncomplicated. The fetus is estimated in the 32%ile based on a 32 week growth US. Obstetric history: 2 [facility] work-up: blood type O positive, antibody screen negative, rubella immune, VDRL non-reactive, HBsAg negative, HIV negative, HCV non-reactive, gonorrhea negative, chlamydia negative, 1 hour GTT wnl, GBS negative. Past Medical History Past Medical History: No Reported History, Seizure Disorder Additional Past Medical History / Comment(s): Varicose veins. Hx seizures "due to anxiety", last seizure March 07, 2024. History of Any Multi-Drug Resistant Organisms: None Reported Past Surgical History: Section Additional Past Surgical History / Comment(s): Section X2. Past Anesthesia/Blood Transfusion Reactions: No Reported Reaction Additional Past Anesthesia/Blood Transfusion Reaction / Comment(s): Daughter slow to wake up at age 1 or 2. Past Psychological History: Anxiety Smoking Status: Current every day smoker Past Alcohol Use History: None Reported Additional Past Alcohol Use History / Comment(s): Smokes 1/2 ppd since age 14. Past Drug Use History: None Reported - Past Family History Mother Family Medical History: No Reported History Medications and Allergies Home Medications Medication Instructions Recorded Confirmed Type Vit No.179/Iron/Folic 1 each PO DAILY 11/28/24 11/30/24 History [ Tablet] Allergies Allergy/AdvReac Type Severity Reaction Status Date / Time Penicillins Allergy Rash/Hives Verified 11/30/24 10:26 Exam Vital Signs Temp Pulse Resp BP Pulse Ox 11/30/24 10:40 97.4 F L 102 H 16 129/84 100 Intake and Output 11/29/24 11/30/24 11/30/24 22:59 06:59 14:59 Other: Weight 61.235 kg Focused physical exam is performed. This is a healthy-appearing in no apparent distress. Breathing is non-labored. Abdomen is gravid and non-tender. Extremities non-tender and non-edematous. heart tones are reactive and reassuring on NST. Results Result Diagrams: 11/30/24 11:09 Abnormal Lab Results - Last 24 Hours (Table) 11/30/24 Range/Units 11:09 WBC 10.8 H (3.8-10.6) k/uL Assessment and Plan Assessment: 29 year old at 39 week gestation presenting for scheduled repeat section Plan: Admit, NPO, initiate protocol
[2024-11-30] MEDS ORDERED: diphenhydrAMINE 50 MG CAP PO PRN (13:09)
[2024-11-30] MEDS ORDERED: diphenhydrAMINE 50 MG/ML 1 ML VIAL IVP PRN ×2 (13:09)
[2024-11-30] MEDS ORDERED: diphenhydrAMINE 25 MG CAP PO PRN (13:09)
[2024-11-30] MEDS ORDERED: NALOXONE 0.4 MG/ML 1 ML VIAL IV PRN (13:09)
[2024-11-30] MEDS ORDERED: METOCLOPRAMIDE 5 MG/ML 2 ML VIAL IVP PRN (13:09)
[2024-11-30] MEDS ORDERED: ONDANSETRON 4 MG/2 ML VIAL IVP PRN (13:09)
[2024-11-30] MEDS ORDERED: ZOLPIDEM 5 MG TAB PO PRN (13:09)
[2024-11-30] MEDS ORDERED: SIMETHICONE 80 MG CHEWABLE PO PRN (13:09)
--- NOTE | 2024-11-30 13:09 | P.OP ---
Date of Procedure: 11/30/24 Preoperative Diagnosis: 1. Term IUP at 39 weeks gestation 2. History of 2 prior sections Postoperative Diagnosis: Same Procedure(s) Performed: Repeat Lower Transverse Section Implants: None Anesthesia: local Surgeon: Roselyn Packer Concrete Form Setter And Finisher #1: Hanna Palencia Estimated Blood Loss (ml): 150 IV fluids (ml): 800 Urine output (ml): 400 (clear yellow) Pathology: none sent Condition: stable Disposition: floor Indications for Procedure: Ms. Aguila is a at 39 weeks presenting for scheduled repeat section. The risks, benefits, and alternatives to section were discussed with the patient including risk of bleeding, infection, damage to surrounding structures including bladder/bowels/ureters, and post-operative VTE. The patient understands these risks and desires to proceed with section. Operative Findings: Colorless amniotic fluid. Viable female in cephalic presentation. Apgars 9/9. Weight 5 pounds and 15 ounces (2690 grams). Normal uterus, bilateral fallopian tubes, and ovaries. Description of Procedure: The patient was taken back to the operating room where spinal anesthesia was found to be adequate. Two grams of Ancef were given for infection prophylaxis. She was prepared and draped in the dorsal supine position with a leftward tilt. A Pfannenstiel skin incision was made with the scalpel. The incision was carried down to the fascia with a bovie. The fascia was incised and extended laterally with Floyd scissors. The superior aspect of the fascia was grasped with the Remedios clamps. The underlying rectus muscle was dissected off sharply with Floyd scissors. In a similar fashion, the inferior aspect of the fascia was elevated with Remedios clamps and the rectus muscle and pyramidalis were dissected off. Excellent hemostasis was achieved with the bovie. The rectus muscle was in the midline down to the level of the pubic symphysis. Pre- peritoneal fatty tissue was bluntly dissected to expose the peritoneum. The peritoneum was found to be free of adherent bowel and entered sharply with Floyd scissors. The peritoneal incision was extended superiorly and inferiorly to the bladder reflection with good visualization of the bladder. The bladder blade was inserted and vesicouterine peritoneum was identified. Intraabdominal survey revealed scant, clear peritoneal fluid and the thinned-out lower uterine segment. The bladder blade was repositioned to keep the bladder out of the operative field. The lower uterine segment was incised with a scalpel. The amniotic sac was ruptured with an Allis clamp and clear fluid was noted. The uterine incision was extended bluntly with lateral and upward traction. The fetus was in cephalic presentation. The head was elevated out of the pelvis with special attention paid to avoid using the uterine incision as a fulcrum. Gentle fundal pressure was applied once the head was brought into the incision. The was delivered with no difficulty and was noted to be crying spontaneously. The mouth and nose were suctioned with a bulb. The cord was clamped and cut. The infant was handed off to the assisted sales representative. IV oxytocin was initiated to facilitate uterine contractions. The placenta was delivered intact with manual massage of uterine fundus. The uterus was then exteriorized and the inside of the uterus was gently wiped with a lap sponge to assure complete removal of placental membranes. The uterine incision was closed with 0-Vicryl suture in a running locked fashion. Two [id number] sutures were placed along the incision to facilitate hemostasis. The ovaries and tubes were found to be normal. The uterus, tubes, and ovaries were then gently returned to the abdominal cavity. The abdomen was copiously suction irrigated. The uterine incision was reinspected and excellent hemostasis was noted. The fascial layer was closed with a 0-Vicryl suture. The skin was closed with 4-0 Monocryl in a subcuticular fashion.The patient tolerated the procedure well. All the counts were correct times two. The patient was taken to the recovery room in a stable condition. A physician medical or surgical instrument maker was utilized for the entire procedure due to the need for tissue retraction, dissection of vital structures, prevention and management of blood loss, and reduction in overall operative and anesthesia time as is the standard of care.
[2024-11-30] MEDS: OXYTOCIN 30 UNITS/500 ML NS 30 UNIT in SALINE 1 500ML.BAG IV SCH (13:10)
[2024-11-30] MEDS ORDERED: KETOROLAC 15 MG/ML 1 ML VIAL IVP SCH (16:00)
[2024-11-30] MEDS: ACETAMINOPHEN TAB 500 MG TAB PO SCH (16:04)
[2024-11-30] MEDS: KETOROLAC 15 MG/ML 1 ML VIAL IVP SCH (19:33)
[2024-11-30] MEDS: SENNOSIDES-DOCUSATE SODIUM 1 EACH TAB PO SCH (19:35)
[2024-12-01] MEDS ORDERED: ACETAMINOPHEN TAB 500 MG TAB PO SCH
[2024-12-01 04:37] LABS: Basophils # (A) 0.1 k/uL (0-0.2); Basophils % (A) 1 %; Eosinophils # (A) 0.2 k/uL (0-0.7); Eosinophils % (A) 1 %; HCT 36.7 % (34.0-46.0); HGB 12.5 gm/dL (11.4-16.0); Lymphocytes % (A) 22 %; MCH 31.5 pg (25.0-35.0); MCHC 34.1 g/dL (31.0-37.0); MCV 92.3 fL (80.0-100.0); Mean Platelet Volume 8.5; Monocytes # (A) 0.7 k/uL (0-1.0); Monocytes % (A) 5 %; Neutrophils # (A) 9.2 k/uL (1.3-7.7); Neutrophils % (A) 69 %; Platelet Count 227 k/uL (150-450); RBC 3.98 m/uL (3.80-5.40); RDW 13.9 % (11.5-15.5); WBC 13.5 k/uL (3.8-10.6)
--- NOTE | 2024-12-01 06:19 | P.PN ---
Progress Note - Text Progress Note Date: 12/01/24 Patient doing well. Ambulating w/o complaints of weakness or paresthesia. Denies headache. Minimal pruritis resolved. Pain well controlled. Back - spinal site clean and dry A/P POD#1 s/p w/ spinal duramorph - continue multimodal analgesia
--- NOTE | 2024-12-01 08:13 | P.PNOBGPC ---
Subjective - Subjective Principal diagnosis: s/p repeat section Interval history: The patient is doing well this morning and had no acute events overnight. She has no complaints this morning. She reports minimal lochia, passing flatus, voiding without difficulty, ambulating, and eating/drinking without nausea or vomiting. She is formula-feeding her without difficulty. She denies chest pain, shortness of breathing, fevers, or chills overnight. She denies pain or swelling in the legs. Patient reports: Reports appetite normal, Reports voiding normally, Reports pain well controlled, Reports ambulating normally [place]: doing well Objective - Vital Signs Latest vital signs: Vital Signs Temp Pulse Resp BP Pulse Ox 12/01/24 04:00 98 F 62 16 93/52 12/01/24 00:00 97.7 F 49 L 16 96/59 11/30/24 20:00 97.6 F 50 L 16 101/62 99 11/30/24 15:00 97.0 F L 56 L 16 106/67 100 11/30/24 14:45 51 L 16 103/57 100 11/30/24 14:30 53 L 16 111/59 100 11/30/24 14:15 51 L 16 125/63 100 11/30/24 14:00 52 L 16 103/51 99 11/30/24 13:45 61 16 99/50 99 11/30/24 13:30 53 L 16 100/64 98 11/30/24 13:18 78 16 103/58 98 11/30/24 13:00 96.4 F L 69 16 114/54 97 11/30/24 10:40 97.4 F L 102 H 16 129/84 100 Intake and Output 11/30/24 12/01/24 12/01/24 22:59 06:59 14:59 Output Total 1450 650 Balance -1450 -650 Output: Urine 1300 650 Uretheral (George) 1300 Output, Quantitative 150 Blood Loss Other: # Voids 1 - Exam Extremities: Present: normal Abdomen: Present: normal appearance, soft Incision: Present: normal, dressed Uterus: Present: normal, firm - Labs Labs: Abnormal Lab Results - Last 24 Hours (Table) 11/30/24 12/01/24 Range/Units 11:09 03:52 WBC 10.8 H 13.5 H (3.8-10.6) k/uL Neutrophils # 9.2 H (1.3-7.7) k/uL Assessment and Plan Assessment: 29 year old now POD#1 s/p repeat section Plan: 1. Postoperative. Patient meeting milestones appropriately. 2. Viable female at bedside, doing well. Dispo: anticipate discharge home tomorrow
[2024-12-01] MEDS: IBUPROFEN 800 MG TAB PO SCH (12:57)
[2024-12-01] MEDS ORDERED: LACTATED RINGERS 1,000 ML IV SCH (15:15)
[2024-12-01] MEDS: LACTATED RINGERS 500 ML IV SCH ×2 (21:16)
[2024-12-02] MEDS: IBUPROFEN 800 MG TAB PO SCH (03:47)
--- NOTE | 2024-12-02 07:25 | P.DS ---
Providers Date of admission: 11/30/24 10:05 Expected date of discharge: 12/02/24 Attending physician: Roselyn Packer MD Primary care physician: Stated None Hospital Course: Ms. Aguila is a 29 year old now POD#3 s/p scheduled repeat section without complications. The patient is doing well this morning and had no acute events overnight. She has no complaints this morning. She reports minimal lochia, passing flatus, voiding without difficulty, ambulating, and eating/drinking without nausea or vomiting. doing well at bedside. She denies chest pain, shortness of breathing, fevers, or chills overnight. She d enies pain or swelling in the legs. Postoperative restrictions are reviewed with the patient including pelvic rest for 6 weeks, no lifting heavier than 15 pounds for 6 weeks. The patient is encouraged to call the office if she experiences any heavy bleeding, foul-smelling discharge, breast complaints, or any if she has any other concerns. She will follow up in the office with in 2 weeks for postop erative exam. All questions are answered. Assessment: 29 year old now POD#2 s/p repeat Patient Condition at Discharge: Good Plan - Discharge Summary Discharge Rx Participant: Yes New Discharge Prescriptions: New Ibuprofen [Motrin] 600 mg PO Q6HR PRN #30 tab PRN Reason: Mild Pain (Scale 1 To 3) Acetaminophen Tab [Tylenol] 650 mg PO Q6H PRN #30 tab PRN Reason: Mild Pain (Scale 1 To 3) No Action Vit No.179/Iron/Folic [ Tablet] 1 each PO DAILY Discharge Medication List Vit No.179/Iron/Folic [ Tablet] 1 each PO DAILY 11/28/24 [History] Acetaminophen Tab [Tylenol] 650 mg PO Q6H PRN #30 tab 12/02/24 [Rx] Ibuprofen [Motrin] 600 mg PO Q6HR PRN #30 tab 12/02/24 [Rx] Follow up Appointment(s)/Referral(s): Roselyn Packer MD [STAFF PHYSICIAN] - 12/15/24 11:30 am (Post Appointment 01-10-2025 at 11:30am) Activity/Diet/Wound Care/Special Instructions: Instructions 1. Do not begin any exercise program for 3 weeks. 2. Do not resume sexual relations for 6 weeks or longer if uncomfortable. 3. You may take tub baths or showers at any time. 4. You may use tampons if desired after 6 weeks. 5. Keep any areas repaired with stitches clean and dry. 6. If you are not nursing, wear a good fitting, supportive bra during the day and limit fluid intake for at least 1 week to prevent breast engorgement. 7. Call the office, , within the next week to make appointment for your 6 week checkup if it has not already been made. 8. Report any of the following occurrences to the doctor promptly: a. Heavy, excessive bleeding b. Chills, fever c. Burning or frequency of urination d. Pain or redness and breasts if nursing e. Increasing pain or swelling of vulva (stitches). In addition to the above instructions, the following additional should be followed: 1. No heavy lifting or straining (exercising) until after 6 week checkup. 2. Keep abdominal incision clean and dry: You may wear a dressing if more comfortable. 3. Make office appointment for 2 weeks after delivery date. Discharge Disposition: HOME SELF-CARE
[2024-12-02 08:26] VITALS: BP 121/70; PULSE 67; RESP 16; TEMP 98.1
== END 2024-12-02 09:20 | disposition home or self-care (01) | DRG 540 ==
LOC: 4FBP 10:05
PROVIDERS: ADMIT Obstetrics & Gynecology; ATTEND Obstetrics & Gynecology
PROC: 10D00Z1 Extraction of Products of Conception, Low, Open Approach (ICD-10-PCS; principal; 2024-11-30 12:00)
DX: O34.211 Maternal care for low transverse scar from previous cesarean delivery (principal); F17.210 Nicotine dependence, cigarettes, uncomplicated; O99.334 Smoking (tobacco) complicating childbirth; Z37.0 Single live birth; Z3A.39 39 weeks gestation of pregnancy; Z86.69 Personal history of other diseases of the nervous system and sense organs
CPT/HCPCS: 85025; 86850; 86900; 86901